=== PATIENT | male | born 1980 | race Caucasian/White ===

== ENCOUNTER 2023-10-18 07:24 | Outpatient (OUT) | payer OTHER, SELFPAY ==
[2023-10-18 08:15] LABS: Alanine Aminotransferase 75 U/L (16-63); Anion Gap 14.7; Aspartate Amino Transferase 32 U/L (15-37); BUN Creatinine Ratio 16.5; Calcium 9.3 mg/dL (8.5-10.1); Carbon Dioxide 28.5 mmol/L (21.0-32.0); Chloride 103 mmol/L (98-107); Cholesterol 167 mg/dL (<=200); Estimated GFR (African America >60 (>=60); Estimated GFR (Non-African Ame >60 (>=60); Glucose 95 mg/dL (74-106); HDL Cholesterol 55 mg/dL (40-60); Potassium 4.2 mmol/L (3.5-5.1); Sodium 142 mmol/L (136-145); Triglycerides 115 mg/dL (<=150)
== END 2023-10-18 07:25 | disposition home or self-care (01) ==
LOC: LAB 07:30
PROVIDERS: PCP Internal Medicine Gastroenterology; Visit Provider Internal Medicine Cardiovascular Disease
DX: E78.2 Mixed hyperlipidemia (principal); I10 Essential (primary) hypertension
CPT/HCPCS: 36415; 80048; 80061; 84450; 84460